=== PATIENT | male | born 1995 | race Two or more races ===

== ENCOUNTER 2017-03-27 00:17 | Emergency (ER) | payer MEDICAID ==
[2017-03-27] MEDS ORDERED: SODIUM CHLORIDE 0.9% 1,000 ML IV ONE (00:37)
[2017-03-27] MEDS ORDERED: ONDANSETRON 4 MG/2 ML VIAL IVP STA (00:37)
[2017-03-27] MEDS ORDERED: KETOROLAC 60 MG/2 ML VIAL IVP STA (00:37)
[2017-03-27 00:53] LABS: BASOPHILS % (AUTO) 0.8 %; EOSINOPHILS # (AUTO) 0.1 10^3/uL (0.0-0.7); EOSINOPHILS % (AUTO) 2.1 %; HCT - HEMATOCRIT 39.3 % (42.0-52.0); HGB - HEMOGLOBIN 13.7 g/dL (14.0-18.0); LYMPHOCYTES # (AUTO) 1.8 10^3/uL (1.5-3.5); LYMPHOCYTES % (AUTO) 44.9 %; MEAN CORPUSCULAR HGB CONC 34.8 g/dL (32.0-36.0); MEAN CORPUSCULAR VOLUME 89.1 fL (80.0-94.0); MONOCYTES # (AUTO) 0.7 10^3/uL (0.0-1.0); MONOCYTES % (AUTO) 18.1 %; NEUTROPHILS # (AUTO) 1.4 10^3/uL (1.5-6.6); NEUTROPHILS % (AUTO) 34.1 %; NUCLEATED RED BLOOD CELLS AUTO 0.1 /100WBC; RED BLOOD COUNT 4.41 10^6/uL (4.70-6.10); RED CELL DISTRIBUTION WIDTH 13.2 % (12.0-15.0); UNCORRECTED WHITE BLOOD COUNT 4.1 x10^3/uL; WHITE BLOOD COUNT 4.1 x10^3/uL (4.8-10.8)
[2017-03-27] MEDS ORDERED: KETOROLAC 30 MG/ML VIAL ONE (00:53)
[2017-03-27] MEDS ORDERED: ONDANSETRON 4 MG/2 ML VIAL ONE (00:53)
[2017-03-27 01:05] LABS: ALBUMIN/GLOBULIN RATIO 1.8 (1.0-2.2); BILIRUBIN,TOTAL 0.3 mg/dL (0.2-1.0); CALCIUM 8.5 mg/dL (8.5-10.3); CREATININE 0.6 mg/dL (0.6-1.2); MAGNESIUM 1.9 mg/dL (1.7-2.8); PHOSPHORUS 3.8 mg/dL (2.5-4.6); POTASSIUM 3.4 mmol/L (3.5-5.0); TOTAL PROTEIN 6.7 g/dL (6.7-8.2)
--- NOTE | 2017-03-27 02:46 | Ultrasound Preliminary Report ---
Exam: US Abdomen Limited IMPRESSION: 1. A few non-mobile echogenic foci along the gallbladder wall, likely representing small polyps, are again noted. The largest measures approximate 6.7 mm diameter. 2. No mobile gallstones. No biliary ductal dilation. 3. Mild hepatomegaly. No discrete liver mass identified. Questionable trace perihepatic fluid near th e liver dome. [facility] SITE ID: [id number]
--- NOTE | 2017-03-27 02:49 | Ultrasound Report ---
EXAM: ABDOMEN ULTRASOUND LIMITED, RUQ EXAM DATE: 03/27/2017 02:13 AM. CLINICAL HISTORY: Ruq pain, vomiting, hx of biliary sludge vs polyps. COMPARISON: 07/29/2016. TECHNIQUE: Real-time scanning was performed with static images obtained. FINDINGS: Liver: Homogeneous without focal mass. 19.2 cm. Main portal vein flow: Hepatopetal. Gallbladder: A few non-mobile echogenic foci along the gallbladder wall again noted. Largest measures approximately 6.7 mm diameter. No mobile stones. No bladder wall thickening. No pericholecystic flui d. No sonographic [place] sign. Biliary System: CBD measures 3.4 mm. No intrahepatic or extrahepatic ductal dilatation. Other: Survey of the right kidney appears unremarkable with no hydronephrosis. Visualized portion of the pancreas appears to be unremarkable. IMPRESSION: 1. A few non-mobile echogenic foci along the gallbladder wall, likely representing small polyps, are again noted. The largest measures approximate 6.7 mm diameter. 2. No mobile gallstones. No biliary ductal dilation. 3. Mild hepatomegaly. No discrete liver mass identified. Questionable trace perihepatic fluid near th e liver dome. [facility] Referring Provider Line: [phone] SITE ID: [id number]
--- NOTE | 2017-03-27 03:02 | ED Physician Documentation ---
PD HPI HEADACHE - Stated complaint Stated Complaint: HEADACHE - Chief complaint Chief Complaint: Neuro - History obtained from History obtained from: Patient, Friend - History of Present Illness Timing - onset: Yesterday Timing - details: Gradual onset, Still present Location: Front Quality: Aching Associated symptoms: No: Fever, Stiff neck Improved by: Rest Similar symptoms before: No diagnosis Recently seen: Not recently seen - Additional information Additional information: Patient is a 21 year old male who is presenting to the emergency department for a headache. patient states that for the last few days he has had some cold type symptoms and some abdominal pain and diarrhea. Patient states that he has had a nagging headache that won't go away. patient also states that he has abdominal pain and that he has had some type of gallbladder problem with sludge the last time he was here. Review of Systems Constitutional: denies: Fever, Chills Eyes: denies: Loss of vision, Photophobia Ears: denies: Ear pain, Drainage/discharge Nose: reports: Congestion, Sinus pressure / pain Throat: denies: Sore throat Respiratory: reports: Cough. denies: Dyspnea, Wheezing GI: reports: Abdominal Pain, Diarrhea : denies: Dysuria, Frequency, Hesitancy Skin: denies: Rash, Lesions Musculoskeletal: denies: Neck pain, Back pain, Extremity pain, Joint pain Neurologic: denies: Generalized weakness, Focal weakness, Numbness Immunocompromised: denies: Immunocompromised PD PAST MEDICAL HISTORY - Past Medical History Psych: Anxiety, Bipolar disorder, ADD/ADHD - Past Surgical History Past Surgical History: Yes - Present Medications Home Medications: Ambulatory Orders Medication Instructions Recorded Confirmed Tramadol HCl [Ultram] 50 mg PO Q8H PRN #10 tablet 07/29/16 - Allergies Allergies/Adverse Reactions: Allergies Allergy/AdvReac Type Severity Reaction Status Date / Time No Known Drug Allergies Allergy Verified 07/29/16 09:00 - Social History Does the pt smoke?: Yes Smoking Status: Current every day smoker Does the pt drink ETOH?: Yes Does the pt have substance abuse?: Yes - Immunizations Immunizations are current?: Yes PD ED PE NORMAL - Vitals Vital signs reviewed: Yes - General General: Alert and oriented X 3, Well developed/nourished - HEENT HEENT: Atraumatic, PERRL, Pharynx benign - Neck Neck: Supple, no meningeal sign, No JVD - Cardiac Cardiac: RRR, No murmur - Respiratory Respiratory: No respiratory distress, Clear bilaterally - Derm Derm: Normal color, Warm and dry, No rash - Extremities Extremities: No deformity, No tenderness to palpate, No edema - Neuro Neuro: Alert and oriented X 3, No motor deficit, No sensory deficit, Normal speech - Psych Psych: Normal mood, Normal affect PD ED PE EXPANDED - HEENT HEENT: Dry mucous membranes - Abdomen Abdomen: Tender to palpation, RUQ. No: Rebound, Guarding Results - Vitals Vitals: Vital Signs - 24 hr 03/27/17 03/27/17 00:21 02:00 Temperature 36.8 C Heart Rate 75 74 Respiratory 16 16 Rate Blood Pressure 122/61 135/60 H O2 Saturation 98 98 Oxygen O2 Source Room air - Labs Labs: Laboratory Tests 03/27/17 03/27/17 00:40 00:40 WBC 4.1 L RBC 4.41 L Hgb 13.7 L Hct 39.3 L MCV 89.1 MCH 31.0 MCHC 34.8 RDW 13.2 Plt Count 159 MPV 9.0 Neut # 1.4 L Lymph # 1.8 [place] # 0.7 Eos # 0.1 Baso # 0.0 Absolute Nucleated RBC 0.00 Nucleated RBCs 0.1 Sodium 139 Potassium 3.4 L Chloride 105 Carbon Dioxide 25 Anion Gap 9.0 BUN 13 Creatinine 0.6 Estimated GFR (MDRD) 170 Glucose 103 H Calcium 8.5 Phosphorus 3.8 Magnesium 1.9 Total Bilirubin 0.3 AST 27 ALT 21 Alkaline Phosphatase 36 L Total Protein 6.7 Albumin 4.3 Globulin 2.4 Albumin/Globulin Ratio 1.8 Lipase 25 - Rads (name of study) abdominal ultrasound Radiology: Final report received (gallbladder polyps but no other abnormality), See rad report PD MEDICAL DECISION MAKING - ED course Complexity details: reviewed old records, reviewed results, re-evaluated patient , considered differential, d/w patient ED course: Patient was seen and examined at bedside. IV access was gained and labs were drawn. patient was treated with toradol and a fluid bolus. Ultrasound was ordered. When patient's diagnostics came back they were within normal limits. Patient's headache had resolved and he was stable for discharge with outpatient follow up. Departure - Departure Disposition: 01 Home, Self Care Clinical Impression: Viral syndrome Condition: Good Instructions: ED Viral Syndrome Follow-Up: primary,care provider [Other] - Within 1 week Comments: Your diagnostics today were within normal limits aside from gall bladder polyps. Your headache and diarrhea are likely related to a viral syndrome and dehydration. You should make sure you stay well hydrated with water and electrolyte solutions. You should follow up with your pmd this week if your symptoms persist. You may return to the emergency department at any time for new, worsening or uncontrollable symptoms.
[2017-03-27 03:44] VITALS: BP 128/66
== END 2017-03-27 03:25 | disposition home or self-care (01) ==
LOC: ED 00:17
DX: B34.9 Viral infection, unspecified (principal); R51 Headache; K82.4 Cholesterolosis of gallbladder; F17.200 Nicotine dependence, unspecified, uncomplicated
CPT/HCPCS: 36415; 76705; 80053; 83690; 83735; 84100; 85025; 96361; 96374; 96375; 99283; 99284

== ENCOUNTER 2020-08-07 19:07 | Emergency (ER) | payer MEDICAID, OTHER ==
[2020-08-07 19:34] LABS: RAPID STREP SCREEN Negative (Negative)
--- NOTE | 2020-08-07 21:45 | XRAY Report ---
PROCEDURE: Chest 1 View X-Ray INDICATIONS: cough fever TECHNIQUE: One view of the chest was acquired. COMPARISON: None FINDINGS: Surgical changes and devices: None. Lungs and pleura: No pleural effusions or pneumothorax. Lungs are clear. Mediastinum: Mediastinal contours appear normal. Heart size is normal. Bones and chest wall: No suspicious bony lesions. Overlying soft tissues appear unremarkable. IMPRESSION: Portable chest within normal limits for age. No focal infiltrates are seen. Reviewed by: Mayur Stevens MD on 08/07/2020 8:44 PM [facility] Approved by: Mayur Stevens MD on 08/07/2020 8:44 PM AK[facility] Station ID: [id number]
[2020-08-07] MEDS ORDERED: AZITHROMYCIN 250 MG TABLET PO STA (22:10)
[2020-08-07] MEDS ORDERED: CHERRY SYRUP 10 ML UDC PO ONE (22:10)
[2020-08-07] MEDS ORDERED: DEXAMETHASONE 10 MG/ML VIAL PO STA (22:10)
--- NOTE | 2020-08-07 22:30 | ED Physician Documentation ---
PD HPI URI - Stated complaint Stated Complaint: FEVER, COUGH, RUNNY NOSE, - Chief complaint Chief Complaint: Fever - History obtained from History obtained from: Patient - History of Present Illness Timing - onset: How many days ago (3) Timing duration: Days (3) Timing details: Gradual onset, Still present Associated symptoms: Fever, Nasal congestion, Rhinorrhea, Sore throat, Dry cough Contributing factors: Other (works for [employer] and has "lots" of contact. Indicates he wears a mask. Has 2 small children at home who are not currently ill.). No: Sick contact Improves by: Rest, Medication Worsened by: Activity Similar symptoms before: Has not had sx before Recently seen: Not recently seen - Additional information Additional information: 25 y/o male has developed a cough and congestion and he has developed a fever and was not able to go in to work today and he has come here concerned about possible COVID. He denies myalgia or loss of taste or smell. Review of Systems Constitutional: reports: Fever, Chills Eyes: denies: Decreased vision Ears: denies: Ear pain Nose: reports: Rhinorrhea / runny nose, Congestion Throat: reports: Sore throat Cardiac: denies: Chest pain / pressure, Palpitations Respiratory: reports: Cough. denies: Dyspnea GI: denies: Abdominal Pain, Nausea, Vomiting : denies: Dysuria, Frequency PD PAST MEDICAL HISTORY - Past Medical History Psych: Anxiety, Bipolar disorder, ADD/ADHD - Past Surgical History Past Surgical History: Yes - Present Medications Home Medications: Ambulatory Orders Medication Instructions Recorded Confirmed Tramadol HCl [Ultram] 50 mg PO Q8H PRN #10 tablet 07/29/16 Azithromycin [Zithromax] 250 mg PO DAILY #4 tablet 08/07/20 - Allergies Allergies/Adverse Reactions: Allergies Allergy/AdvReac Type Severity Reaction Status Date / Time acetaminophen [From Vicodin] AdvReac Emesis Verified 08/07/20 19:11 hydrocodone [From Vicodin] AdvReac Emesis Verified 08/07/20 19:11 - Social History Does the pt smoke?: Yes Smoking Status: Current every day smoker Does the pt drink ETOH?: Yes Does the pt have substance abuse?: Yes - Immunizations Immunizations are current?: Yes - POLST Patient has POLST: No PD ED PE NORMAL - Vitals Vital signs reviewed: Yes (febrile and tachy ) - General General: Alert and oriented X 3, No acute distress, Well developed/nourished - HEENT HEENT: Atraumatic, PERRL, EOMI, Other (TM's are erythematous with distortion of the landmarks bilaterally ) - Neck Neck: Supple, no meningeal sign, No bony TTP - Cardiac Cardiac: RRR, No murmur - Respiratory Respiratory: No respiratory distress, Clear bilaterally - Abdomen Abdomen: Soft, Non tender - Back Back: No CVA TTP, No spinal TTP - Derm Derm: Normal color, Warm and dry, No rash - Extremities Extremities: No deformity, No edema - Neuro Neuro: Alert and oriented X 3, 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 No focal infiltrates seen.), EMP read indepedently, See rad report PD MEDICAL DECISION MAKING - ED course Complexity details: reviewed results, re-evaluated patient, considered differential, d/w patient ED course: 25y/o male with cough and fever has OM on exam, a normal appearing chest x-ray and a COVID swab is performed. I suspect this patient's fever is related to his OM and he is administered PO decadron and azithro and he is placed onto a course of azithro and quarantined for 14 days. Departure - Departure Disposition: 01 Home, Self Care Clinical Impression: Otitis media Qualifiers: Otitis media type: suppurative Chronicity: acute Laterality: bilateral Recurrence: non-recurrent Spontaneous tympanic membrane rupture: without spontaneous rupture Qualified Code(s): H66.003 - Acute suppurative otitis media without spontaneous rupture of ear drum, bilateral Condition: Stable Instructions: ED Otitis Media Acute Adult Follow-Up: [facility] [Provider Group] Prescriptions: Azithromycin [Zithromax] 250 mg PO DAILY #4 tablet Comments: A COVIC-19 test is pending and results should be available within 3 days. In the meantime quarantine yourself. Wear a mask to prevent spread. Forms: Activity restrictions Discharge Date/Time: 08/07/20 22:45
[2020-08-07 22:34] VITALS: BP 123/52
== END 2020-08-07 22:45 | disposition home or self-care (01) ==
LOC: ED 19:07
DX: H66.003 Acute suppurative otitis media without spontaneous rupture of ear drum, bilateral (principal); F17.200 Nicotine dependence, unspecified, uncomplicated; Z20.818 Contact with and (suspected) exposure to other bacterial communicable diseases
CPT/HCPCS: 71045; 87070; 87430; 87635; 99283; A9270

== ENCOUNTER 2020-08-12 11:35 | Outpatient (CLI) | payer OTHER | END 2020-08-12 11:36 | disposition home or self-care (01) | LOC: COV 11:35 | PROVIDERS: ATTEND Family Medicine | DX: R50.9 Fever, unspecified (principal); Z20.828 Contact with and (suspected) exposure to other viral communicable diseases; R05 Cough; R06.02 Shortness of breath; R09.81 Nasal congestion; J02.9 Acute pharyngitis, unspecified; R43.9 Unspecified disturbances of smell and taste; R11.2 Nausea with vomiting, unspecified ==